=== PATIENT | male | born 1975 | race Caucasian/White ===

== ENCOUNTER 2017-07-25 02:58 | Emergency (ER) | payer SELFPAY ==
[~2017-07-25] VITALS: Ht 177.8 cm; Wt 83.9 kg
[2017-07-25] MEDS ORDERED: DEXAMETHASONE PF 10 MG/ML (DECADRON) VIAL IM STA (05:53)
--- NOTE | 2017-07-25 05:53 | ED Cough/URI ---
General Chief Complaint: Cough/Cold/Flu Symptoms Stated Complaint: FLU SYM Nursing Triage Note: PT TO ED 8 W/ C/O FLU LIKE SYMPTOMS ONSET X5 DAYS. Source: patient Exam Limitations: no limitations History of Present Illness Time seen by provider: 05:42 Initial Comments Here with cough, congestion, sore throat and body aches over the last 5 days. Patient's significant other has the same findings. He is concerned about influenza. Denies breathing problems, vomiting or diarrhea. Timing/Duration: constant, week Severity/Quality: dry cough Prior Episodes/Possible Cause: occasional episodes Associated Symptoms: cough, fever/chills, muscle aches, nasal congestion, nasal drainage, sore throat Allergies and Home Medications Allergies Coded Allergies: No Known Drug Allergies (Unverified , 07/25/17) Constitutional: see HPI, chills, fever EENTM: nose congestion, throat pain Respiratory: cough, No short of breath Cardiovascular: no symptoms reported Gastrointestinal: no symptoms reported Genitourinary: no symptoms reported Musculoskeletal: muscle pain, No muscle weakness Psychiatric/Neurological: No Symptoms Reported All Other Systems Reviewed Negative Unless Noted: Yes Past Pmxcwiw-Gorvab-Abaldz Hx Patient Social History Alcohol Use: Occasionally Uses Recreational Drug Use: No Smoking Status: Current Everyday Smoker Type Used: Cigarettes 2nd Hand Smoke Exposure: Yes Recent Foreign Travel: No Contact w/Someone Who Travel: No Recent Infectious Disease Expo: No Recent Hopitalizations: No Physical Abuse: No Sexual Abuse: No Mistreated: No Fear: No Surgeries History of Surgeries: No Respiratory History of Respiratory Disorde: No Cardiovascular History of Cardiac Disorders: No Neurological History of Neurological Disord: No Genitourinary History of Genitourinary Disor: No Gastrointestinal History of Gastrointestinal Di: No Musculoskeletal History of Musculoskeletal Dis: No Endocrine History of Endocrine Disorders: No HEENT History of HEENT Disorders: No Cancer History of Cancer: No Psychosocial History of Psychiatric Problem: No Suicide Risk Score: 0 Integumentary History of Skin or Integumenta: No Blood Transfusions History of Blood Disorders: No Reviewed Nursing Assessment Reviewed/Agree w Nursing PMH: Yes Family Medical History Significant Family History: No Pertinent Family Hx Physical Exam Vital Signs Vital Sign - Last 12Hours 07/25/17 04:57 Temp 99.5 Pulse 95 Resp 18 B/P (MAP) 135/78 (97) Pulse Ox 97 O2 Delivery Room Air Capillary Refill : Less Than 3 Seconds General Appearance: WD/WN, no apparent distress HEENT: PERRL/EOMI, pharyngeal erythema, other (moderate nasal congestion with clear rhinorrhea moderate erythema) Neck: full range of motion, supple Respiratory: lungs clear, normal breath sounds Cardiovascular: regular rate, rhythm, no murmur Gastrointestinal: non tender, soft Extremities: non-tender, normal inspection Neurologic/Psychiatric: alert, oriented x 3 Skin: normal color, warm/dry Progress/Results/Core Measures Suspected Sepsis Recent Fever Within 48 Hours: No Infection Criteria Present: None New/Unexplained Altered Menta: No Sepsis Screen: No Definite Risk Sepsis Diagnosis: SIRS Temperature:99.5 Pulse: 95 Respiratory Rate: 18 Blood Pressure 135 /78 Mean: 97 Results/Orders Micro Results Microbiology 07/25/17 Influenza Types A,B Antigen ([facility]) - Final, Complete My Orders Orders - CHANI VIDALES MD Influenza A And B Antigens (07/25/17 03:05) Vital Signs/I&O Vital Sign - Last 12Hours 07/25/17 04:57 Temp 99.5 Pulse 95 Resp 18 B/P (MAP) 135/78 (97) Pulse Ox 97 O2 Delivery Room Air Capillary Refill : Less Than 3 Seconds Blood Pressure Mean: 97 Progress Note : Progress Note Seen and evaluated. Decadron 10 mg IM. Discharged home with return precautions. Patient verbalize understanding instructions and agreement with plan. Departure Impression Impression: Primary Impression: Influenza-like symptoms Disposition: 01 HOME, SELF-CARE Condition: Stable Departure-Patient Inst. Decision time for Depature: 05:56 Referrals: NO,LOCAL PHYSICIAN (PCP) Primary Care Physician Patient Instructions: Viral Upper Respiratory Infection, Adult (DC) Add. Discharge Instructions: All discharge instructions reviewed with patient and/or family. Voiced understanding. Take ibuprofen 800 mg every 8 hours as needed for pain or fever. You may take Tylenol 1000 mg every 8 hours as needed for pain or fever. You may use Afrin nasal spray or the generic, 12 hour relief, 2 sprays to each nostril for 3 days only and then stop. Do not take more than 3 days. Drink plenty of fluids and get plenty of rest. Return for worsening, fever, vomiting, weakness, breathing problems or other concerns as needed. CHANI VIDALES MD Jul 25, 2017 05:53
[2017-07-25] MEDS ORDERED: DEXAMETHASONE 10 MG/ML (DECADRON) 1 ML VIAL ONE (05:56)
[2017-07-25] MEDS ORDERED: DEXAMETHASONE 10 MG/ML (DECADRON) 1 ML VIAL IM ONE (06:00)
[2017-07-25 06:08] VITALS: BP 0/0
== END 2017-07-25 06:08 | disposition home or self-care (01) ==
LOC: ER 03:03
DX: J11.1 Influenza due to unidentified influenza virus with other respiratory manifestations (principal); F17.210 Nicotine dependence, cigarettes, uncomplicated
CPT/HCPCS: 87804; 96372; 99284